=== PATIENT | female | born 1980 | race Caucasian/White ===

== ENCOUNTER 2017-01-05 21:28 | Emergency (ER) | payer MEDICAID ==
[~2017-01-05 21:28] MED LIST: DEPAKOTE500 MG PO; LEXAPRO20 MG PO; NAPROXEN500 MG PO; PROINH INH; SEROQUEL300 MG PO; TRAZODONE100 MG PO; VIS50 PO
[2017-01-06 00:52] VITALS: BP 124/92
== END 2017-01-06 00:52 | disposition home or self-care (01) ==
LOC: ED 21:28
DX: H65.91 Unspecified nonsuppurative otitis media, right ear (principal); J45.909 Unspecified asthma, uncomplicated; Z88.6 Allergy status to analgesic agent

== ENCOUNTER 2019-04-13 12:26 | Emergency (ER) | payer OTHER ==
[~2019-04-13] VITALS: Ht 152.4 cm; Wt 82.1 kg
[2019-04-13 12:40] VITALS: Ht 152.4 cm; Wt 82.1 kg
[2019-04-13 14:11] LABS: microscopic required? YES; urine erythrocyte TRACE (NEGATIVE)
[2019-04-13 15:13] VITALS: BP 116/64
== END 2019-04-13 15:13 | disposition home or self-care (01) ==
LOC: ED 12:26
PROVIDERS: Emergency Medicine
DX: N39.0 Urinary tract infection, site not specified (principal); F31.9 Bipolar disorder, unspecified; J45.909 Unspecified asthma, uncomplicated; Z98.890 Other specified postprocedural states; Z88.6 Allergy status to analgesic agent
CPT/HCPCS: J1100

== ENCOUNTER 2019-10-12 13:41 | Emergency (ER) | payer OTHER ==
[~2019-10-12] VITALS: Ht 154.9 cm; Wt 80.3 kg
[2019-10-12 13:52] VITALS: BP 124/46; Ht 154.9 cm; Wt 80.3 kg
== END 2019-10-12 15:08 | disposition home or self-care (01) ==
LOC: ED 13:41
DX: T63.481A Toxic effect of venom of other arthropod, accidental (unintentional), initial encounter (principal); J45.909 Unspecified asthma, uncomplicated; Z98.890 Other specified postprocedural states; Y92.89 Other specified places as the place of occurrence of the external cause
CPT/HCPCS: 87804